=== PATIENT | female | born 1975 | race Caucasian/White ===

== ENCOUNTER → 2018-07-31 | Outpatient (CLI) | payer OTHER ==
--- NOTE | 2018-07-31 15:21 | RAD ---
Bilateral hands, 4 views, 07/31/2018: HISTORY: Hand pain There is minimal spurring at scattered interphalangeal joints. No erosive bony changes are seen. No fracture or dislocation is identified. The soft tissues are unremarkable. IMPRESSION: 1. Minimal scattered degenerative changes. 2. No acute bony abnormality is detected. Electronically signed by: Dereck Gamble MD (07/31/2018 3:18 PM) [facility]
== END | disposition home or self-care (01) ==
LOC: RAD 10:10
PROVIDERS: ATTEND Internal Medicine Infectious Disease
DX: M19.042 Primary osteoarthritis, left hand (principal); M19.041 Primary osteoarthritis, right hand; M77.8 Other enthesopathies, not elsewhere classified
CPT/HCPCS: 73120